=== PATIENT | female | born 1995 | race Hispanic/Latino ===

== ENCOUNTER 2021-02-26 08:32 | Outpatient (CLI) | payer OTHER ==
[2021-02-26 20:41] LABS: SARS-CoV-2 PCR by NAA Not Detected (NotDetected)
== END 2021-02-26 08:33 | disposition home or self-care (01) ==
LOC: CSHLAB 08:32
PROVIDERS: ATTEND Obstetrics & Gynecology
DX: Z20.822 Contact with and (suspected) exposure to COVID-19 (principal)
CPT/HCPCS: U0003; U0005

== ENCOUNTER 2021-03-01 19:00 | Inpatient (IN) | payer BC, OTHER ==
[~2021-03-01 19:00] MED LIST: Bupivacaine 0.25% HCL 30 ML VIAL ONE; Lidocaine 2% PF 5 ML VIAL ONE
[2021-03-01 23:03] VITALS: BMI 33.8
[2021-03-01] MEDS ORDERED: Misoprostol 200 MCG TAB PR PRN (23:45)
[2021-03-01] MEDS ORDERED: Promethazine HCl 25 MG/ML VIAL IM PRN (23:45)
[2021-03-01] MEDS ORDERED: Docusate 100 MG CAP PO PRN (23:45)
[2021-03-01] MEDS ORDERED: Lidocaine 1% (PF) 30 ML VIAL SC PRN (23:45)
[2021-03-01] MEDS ORDERED: Methylergonovine 0.2 MG/ML VIAL IM PRN (23:45)
[2021-03-01] MEDS ORDERED: Butorphanol Tartrate 1 MG/ML VIAL SLOW IVP PRN (23:45)
[2021-03-01] MEDS ORDERED: Carboprost 250 MCG/ML AMP IM PRN (23:45)
[2021-03-01] MEDS ORDERED: NS w/ Oxytocin 30 units 500 ML IV SCH (23:45)
[2021-03-01] MEDS ORDERED: Ondansetron PF 4 MG/2 ML Vial IVP PRN (23:45)
[2021-03-01] MEDS ORDERED: Ibuprofen 800 MG TAB PO PRN (23:45)
[2021-03-01] MEDS ORDERED: Acetaminophen 500 MG TAB PO PRN (23:45)
[2021-03-01] MEDS ORDERED: hydrALAZINE 20 MG/ML VIAL SLOW IVP PRN (23:45)
[2021-03-02 01:44] LABS: Hemoglobin 8.4 g/dL (12.0-15.5); Mean Corpuscular HGB CONC 30.4 g/dL (32.0-36.0); Mean Corpuscular Hemoglobin 23.7 pg (27.0-33.0); Mean Corpuscular Volume 77.7 fl (81.6-98.3); Mean Platelet Volume 10.9 fl (7.4-10.4); Platelet Count 384 10x3/uL (150-450); RBC Distribution Width 17.3 % (11.5-14.5); Red Blood Cell (RBC) Count 3.55 10x6/uL (3.90-5.03); White Blood Cell (WBC) Count 7.4 10x3/uL (3.5-10.5)
[2021-03-02 02:19] LABS: Hep B Surf Ag Non-Reactive S/CO (NonReactive); Syphilis Antibody Nonreactive (Nonreactive); Syphilis Antibody Index 0.04 S/CO (<1.00 Non-Reactive)
[2021-03-02 02:51] LABS: HBSAg Index 0.14 S/CO (0-0.99)
[2021-03-02] MEDS ORDERED: Fentanyl 2 mcg/Bup 0.1% Cadd 100 ML ONE (04:27)
[2021-03-02] MEDS ORDERED: Hydrocerin (Eucerin) Cream 120 gm Jar TOP PRN (06:24)
[2021-03-02] MEDS ORDERED: Acetaminophen 325 MG TAB PO PRN (06:24)
[2021-03-02] MEDS ORDERED: Promethazine HCl 25 MG/ML VIAL IM PRN ×2 (06:24→12:23)
[2021-03-02] MEDS ORDERED: Naloxone HCl 0.4 mg/ml Vial IVP PRN ×2 (06:24)
[2021-03-02] MEDS ORDERED: ePHEDrine Sulfate 50 MG/10 ML VIAL SLOW IVP PRN (06:24)
[2021-03-02] MEDS ORDERED: diphenhydrAMINE 50 MG/ML VIAL IVP PRN (06:24)
[2021-03-02] MEDS ORDERED: Ondansetron PF 4 MG/2 ML Vial IVP PRN ×2 (06:24→12:23)
[2021-03-02] MEDS ORDERED: Lactated Ringer's 500 ML IV PRN (06:24)
[2021-03-02] MEDS ORDERED: Communication Order-Pharmacy FS PRN (06:30)
[2021-03-02] MEDS ORDERED: Fentanyl 2 mcg/Bupivacaine 0.1% Cassette 100 ML EPIDURAL SCH (06:30)
[2021-03-02] MEDS: Lactated Ringer's 1,000 ML IV SCH ×2 (07:54→13:09)
[2021-03-02] MEDS: NS w/ Oxytocin 30 units 500 ML IV SCH ×2 (10:54→11:33)
[2021-03-02] MEDS ORDERED: Boostrix 0.5 ML (Tdap) VIAL IM ONE (12:23)
[2021-03-02] MEDS ORDERED: traMADol HCl 50 MG TAB PO PRN (12:23)
[2021-03-02] MEDS ORDERED: Bisacodyl 10 MG SUPP PR PRN (12:23)
[2021-03-02] MEDS ORDERED: Lanolin Ointment 7 GM TUBE TOP PRN (12:23)
[2021-03-02] MEDS ORDERED: hydrALAZINE 20 MG/ML VIAL SLOW IVP PRN (12:23)
[2021-03-02] MEDS ORDERED: Benzocaine-Menthol 82.5 ML CAN TOP PRN (12:23)
[2021-03-02] MEDS ORDERED: Milk Of Magnesia 30 ML UDCUP PO PRN (12:23)
[2021-03-02] MEDS ORDERED: diphenhydrAMINE 25 MG CAP PO PRN (12:23)
[2021-03-02] MEDS: Ibuprofen 800 MG TAB PO SCH ×2 (13:59→21:36)
[2021-03-02] MEDS: traMADol HCl 50 MG TAB PO PRN ×2 (13:59→21:37)
[2021-03-02] MEDS: Ferrous Sulfate 325 MG TAB PO SCH (18:05)
[2021-03-02] MEDS: Docusate 100 MG CAP PO SCH (21:36)
[2021-03-03 04:42] LABS: #Eosinphils 0.2 10x3/uL (0.0-0.5); #Monocytes 0.7 10x3/uL (0.0-1.1); #Neutrophils 8.1 10x3/uL (1.5-8.4); %Basophils 0.4 % (0.0-2.0); %Eosinophils 1.4 % (0.0-6.0); %Lymphocytes 15.1 % (18.0-47.0); %Monocytes 6.4 % (0.0-10.0); %Neutrophils 75.6 % (40.0-75.0); Hemoglobin 7.6 g/dL (12.0-15.5); Mean Corpuscular HGB CONC 29.8 g/dL (32.0-36.0); Mean Corpuscular Hemoglobin 23.2 pg (27.0-33.0); Mean Platelet Volume 10.6 fl (7.4-10.4); Platelet Count 333 10x3/uL (150-450); RBC Distribution Width 17.3 % (11.5-14.5); Red Blood Cell (RBC) Count 3.27 10x6/uL (3.90-5.03); White Blood Cell (WBC) Count 10.7 10x3/uL (3.5-10.5)
[2021-03-03] MEDS: Ibuprofen 800 MG TAB PO SCH (05:31)
[2021-03-03] MEDS: traMADol HCl 50 MG TAB PO PRN (05:32)
[2021-03-03 05:44] LABS: Hypochromia SLIGHT = 6-15 cells (100X) (0-5/hpf); Platelet Morphology Comment Appears Adequate
[2021-03-03] MEDS: Ferrous Sulfate 325 MG TAB PO SCH (08:33)
[2021-03-03] MEDS: Docusate 100 MG CAP PO SCH (08:33)
[2021-03-03] MEDS ORDERED: Prenatal Vitamin 1 TAB PO SCH (09:00)
[2021-03-03 11:32] VITALS: BP 101/61; TEMP 98.6
== END 2021-03-03 13:10 | disposition home or self-care (01) | DRG 807 ==
LOC: CSHLD 22:38 → CSHPP 03-02 12:30
PROVIDERS: ADMIT Obstetrics & Gynecology; ATTEND Obstetrics & Gynecology
PROC: 10E0XZZ Delivery of Products of Conception, External Approach (ICD-10-PCS; principal; 2021-03-02)
PROC: 0KQM0ZZ Repair Perineum Muscle, Open Approach (ICD-10-PCS; 2021-03-02)
PROC: 3E0P7VZ Introduction of Hormone into Female Reproductive, Via Natural or Artificial Opening (ICD-10-PCS; 2021-03-02)
PROC: 3E033VJ Introduction of Other Hormone into Peripheral Vein, Percutaneous Approach (ICD-10-PCS; 2021-03-02)
DX: O99.892 Other specified diseases and conditions complicating childbirth (principal); Z37.0 Single live birth; O70.1 Second degree perineal laceration during delivery; Z20.822 Contact with and (suspected) exposure to COVID-19; Z3A.39 39 weeks gestation of pregnancy; R00.0 Tachycardia, unspecified
CPT/HCPCS: 36415; 51702; 85025; 85027; 86780; 86850; 86900; 86901; 87340; J2001; J2405; J2590; J7120; S0020; U0003; U0005

== ENCOUNTER 2022-12-30 21:37 | Emergency (ER) | payer BC, SELFPAY ==
[~2022-12-30 21:37] MED LIST changes: -Bupivacaine 0.25% HCL 30 ML VIAL ONE; +Iopamidol 370 76% 100 ML VIAL ONE; -Lidocaine 2% PF 5 ML VIAL ONE
[2022-12-30 22:39] LABS: #Basophils 0.1 10x3/uL (0.0-0.2); #Eosinphils 0.5 10x3/uL (0.0-0.5); #Monocytes 0.4 10x3/uL (0.0-1.1); #Neutrophils 4.4 10x3/uL (1.5-8.4); %Basophils 0.7 % (0.0-2.0); %Eosinophils 6.4 % (0.0-6.0); %Monocytes 4.9 % (0.0-10.0); %Neutrophils 59.6 % (40.0-75.0); Hematocrit 37.1 % (34.9-44.5); Hemoglobin 12.1 g/dL (12.0-15.5); Mean Corpuscular HGB CONC 32.6 g/dL (32.0-36.0); Mean Corpuscular Hemoglobin 28.3 pg (27.0-33.0); Mean Corpuscular Volume 86.9 fl (81.6-98.3); Mean Platelet Volume 9.3 fl (7.4-10.4); Platelet Count 448 10x3/uL (150-450); RBC Distribution Width 14.4 % (11.5-14.5); Red Blood Cell (RBC) Count 4.27 10x6/uL (3.90-5.03); White Blood Cell (WBC) Count 7.4 10x3/uL (3.5-10.5)
[2022-12-30 22:44] LABS: BHCG - Serum Negative (NEGATIVE)
[2022-12-30 22:45] LABS: Pregs Control Background? CLEAR/WHITE (CLR/WHITE); Pregs Control Bar Appear? YES (CONTROL BAR)
[2022-12-30 22:51] LABS: ALT (SGPT) 32 U/L (8-55); AST (SGOT) 18 U/L (5-34); Albumin 4.7 g/dL (3.5-5.0); Alkaline Phosphatase 52 U/L (40-110); Anion Gap 17 mmol/L (10-20); BUN (Urea Nitrogen) 9 mg/dL (7.0-18.7); Bilirubin, Total 0.2 mg/dL (0.2-1.2); Calc. Creatinine Clearance 0 mL/min (70-130); Calcium 9.8 mg/dL (7.8-10.44); Carbon Dioxide 22 mmol/L (22-29); Chloride 103 mmol/L (98-107); Estimated GFR 108; Glucose 139 mg/dL (70-105); Potassium 3.4 mmol/L (3.5-5.1); Protein, Total 7.7 g/dL (6.0-8.3); Sodium 139 mmol/L (136-145)
[2022-12-31 01:06] LABS: SARS-CoV-2 NAA Rapid Test Not Detected (NotDetected)
== END 2022-12-31 00:26 | disposition home or self-care (01) ==
LOC: CSHERS 21:37
DX: R06.02 Shortness of breath (principal); R07.9 Chest pain, unspecified; J45.909 Unspecified asthma, uncomplicated; Z20.822 Contact with and (suspected) exposure to COVID-19
CPT/HCPCS: 71045; 71275; 80053; 84703; 85025; 93005; 93010; Q9967

== ENCOUNTER 2024-09-14 13:37 | Emergency (ER) | payer SELFPAY ==
[2024-09-14] MEDS ORDERED: Ketorolac Tromethamine 30 MG (1 mL) VIAL ONE (14:13)
[2024-09-14 14:49] LABS: #Basophils Less than 0.03 10x3/uL (0.0-0.2); #Eosinophils 0.06 10x3/uL (0.0-0.5); #Monocytes 0.36 10x3/uL (0.0-1.1); #Neutrophils 4.95 10x3/uL (1.5-8.4); %Basophils 0.2 % (0.0-2.0); %Eosinophils 1.0 % (0.0-6.0); %Lymphocytes 8.3 % (18.0-47.0); %Monocytes 6.1 % (0.0-10.0); %Neutrophils 83.9 % (40.0-75.0); Hematocrit 35.0 % (34.9-44.5); Hemoglobin 11.4 g/dL (12.0-15.5); Mean Corpuscular Hemoglobin 28.4 pg (27.0-33.0); Mean Corpuscular Volume 87.3 fL (81.6-98.3); Platelet Count 332 10x3/uL (150-450); Red Blood Cell (RBC) Count 4.01 10x6/uL (3.90-5.03); White Blood Cell (WBC) Count 5.90 10x3/uL (3.5-10.5)
[2024-09-14 15:16] LABS: ALT (SGPT) 23 U/L (Less than 34); AST (SGOT) 24 U/L (11-34); Albumin 4.4 g/dL (3.1-4.5); Alkaline Phosphatase 44 U/L (40-110); Anion Gap 18 mmol/L (10-20); BUN (Urea Nitrogen) 10 mg/dL (7.0-18.7); Bilirubin, Total 0.6 mg/dL (0.3-1.2); Calc. Creatinine Clearance 0 mL/min (70-130); Calcium 8.0 mg/dL (7.8-10.44); Carbon Dioxide 17 mmol/L (22-29); Chloride 108 mmol/L (98-107); Globulin 2.8 g/dL (2.4-3.5); Glucose 114 mg/dL (70-105); Lipase 18 U/L (8-78); Potassium 3.5 mmol/L (3.5-5.1); Sodium 139 mmol/L (136-145)
[2024-09-14 15:22] LABS: Troponin I Less than 0.010 ng/mL (< 0.028)
== END 2024-09-14 17:28 | disposition home or self-care (01) ==
LOC: CSHERS 13:37
DX: R07.9 Chest pain, unspecified (principal); R10.9 Unspecified abdominal pain; R11.2 Nausea with vomiting, unspecified
CPT/HCPCS: 71275; 74174; 76705; 80053; 83605; 83690; 84484; 85025; 85379; 93005; 96361; 96374; J1885; Q9967